=== PATIENT | male | born 1965 | race Caucasian/White ===

== ENCOUNTER 2017-04-15 19:14 | Emergency (ER) | payer OTHER ==
[~2017-04-15] VITALS: Ht 175.3 cm; Wt 126.2 kg
[2017-04-15 19:23] VITALS: BP 135/80
--- NOTE | 2017-04-15 19:44 | NUR ---
Narda faulkner in EDM - 04/15/17 at 1949 by NASRIN NICOLE HUERTA CALLED TO REQUEST AN EVALUATING ON PT FOR A 5150 HOLD. PER AGENT 367 OFFICER WILL DISTPATCH TO [facility].
--- NOTE | 2017-04-15 20:41 | NUR ---
PT RETURN FROM [facility] TO [facility]
--- NOTE | 2017-04-15 21:49 | NUR ---
PT TAKEN TO BED 8
--- NOTE | 2017-04-15 22:14 | NUR ---
Patient being evaluated by at bedside.
[2017-04-15] MEDS: CLINDAMYCIN 600 MG/4 ML VIAL IM ONE (22:30)
[2017-04-15] MEDS: IBUPROFEN 800 MG TAB PO ONE (22:30)
--- NOTE | 2017-04-15 22:40 | NUR ---
51 Y/O M W/C/O L INDEX PAIN S/P INJURED X 1 WK AGO, AND POSSIBLE SPIDER BITES TO R KNEE AND R LOWER ABD X 4 DAYS AGO. MED HX CHF FOR WHICH PT STATES DOES NOT TAKE ANY MEDS, AND ASTHMA.
[2017-04-15 23:01] VITALS: BP 114/73
--- NOTE | 2017-04-15 23:02 | NUR ---
Patient discharged with v/s stable. Written and verbal after care instructions given and explained. Patient alert, oriented and verbalized understanding of instructions. Ambulatory with steady gait. All questions addressed prior to discharge. ID band removed. Patient advised to follow up with PMD. Rx of [id number] MG, MOTRIN 800 MG, ALBUTEROL 90 MCG/ACTUATION, TRAMADOL 50 MG given. Patient educated on indication of medication including possible reaction and side effects. Opportunity to ask questions provided and answered.
== END 2017-04-15 23:02 ==
LOC: MED 19:14
DX: S63.611A Unspecified sprain of left index finger, initial encounter (principal); L03.115 Cellulitis of right lower limb; L03.113 Cellulitis of right upper limb; I11.0 Hypertensive heart disease with heart failure; I50.9 Heart failure, unspecified; L93.0 Discoid lupus erythematosus; W20.8XXA Other cause of strike by thrown, projected or falling object, initial encounter; Y93.89 Activity, other specified; Y92.89 Other specified places as the place of occurrence of the external cause; Y99.8 Other external cause status
CPT/HCPCS: 73130; 96372; 99284; J3490